=== PATIENT | female | born 1935 | race African-American/Black ===

== ENCOUNTER 2019-04-26 05:26 | Inpatient (IN) | payer BC, MEDICARE, OTHER ==
[~2019-04-26] VITALS: Ht 162.6 cm; Wt 59.9 kg
[2019-04-26] VITALS (7 sets, daily range): BP systolic 121–160; BP diastolic 62–80
[~2019-04-26 05:26] MED LIST: PREMARIN; [UNRECOGNIZED DRUG - OTHER]
[2019-04-26] MEDS ORDERED: METHYLPREDNISOLONE SOD SUCC 125 MG/2 ML VIAL IV STA (05:31)
[2019-04-26] MEDS ORDERED: IPRATROPIUM BROMIDE (0.02%) 0.5MG/2.5ML NEB HHN STA (05:31)
[2019-04-26] MEDS ORDERED: NITROGLYCERIN 0.4MG TABLET SL SL PRN (05:45)
[2019-04-26] MEDS ORDERED: ALBUTEROL (0.083%) 2.5MG/3ML NEB HHN SCH (06:00)
[2019-04-26 06:01] LABS: BASOPHILS % 1.1 % (0.0-2.0); EOSINOPHILS % 3.3 % (0.0-5.0); HEMATOCRIT. 33.6 % (36.0-48.0); HEMOGLOBIN. 10.7 g/dL (12.0-16.0); LYMPHOCYTES % 46.6 % (20.0-50.0); MEAN CORPUSCULAR HEMOGLOBIN 28.9 pg (28.0-32.0); MEAN CORPUSCULAR VOLUME 90.8 fL (81.0-99.0); MEAN PLATELET VOLUME 9.2 fl (7.4-10.4); MONOCYTES % 8.8 % (2.0-8.0); NEUTROPHILS % 40.2 % (40.0-76.0); PLATELET 288 x1000/uL (130-400); RED BLOOD CELL COUNT 3.71 mill/uL (4.2-5.4); RED CELL DISTRIBUTION WIDTH 17.3 % (11.6-14.6)
[2019-04-26 06:04] LABS: CHLORIDE 112 mEq/L (98-107)
[2019-04-26 06:25] LABS: PARTIAL THROMBOPLASTIN TIME 29.5 sec (23.4-31.0); PROTHROMBIN TIME 19.7 sec (9.6-11.0)
[2019-04-26] MEDS ORDERED: IPRATROPIUM BROMIDE (0.02%) 0.5MG/2.5ML NEB ONE (08:16)
[2019-04-26] MEDS ORDERED: ALBUTEROL (0.083%) 2.5MG/3ML NEB ONE (08:16)
[2019-04-26] MEDS ORDERED: ENOXAPARIN 40MG/0.4ML SYR SUBCUT SCH (09:45)
[2019-04-26] MEDS ORDERED: GUAIFENESIN 200MG/10ML SUGAR FREE UDC PO PRN (09:45)
[2019-04-26] MEDS ORDERED: IPRATROPIUM/ALBUTEROL 0.5-3(2.5)MG/3ML NEB NEB PRN (09:45)
[2019-04-26] MEDS ORDERED: CLONIDINE 0.1MG TABLET PO PRN (09:45)
[2019-04-26] MEDS ORDERED: MAGNESIUM/ALUMINUM HYDROXIDE/SIMETHICONE 30ML UDC PO PRN (09:45)
[2019-04-26] MEDS ORDERED: ONDANSETRON HCL 4MG/2ML INJ IV PRN (09:45)
[2019-04-26] MEDS ORDERED: ACETAMINOPHEN 325MG TABLET PO PRN (09:45)
[2019-04-26 10:14] LABS: BG BASE EXCESS 0.7 mmol/L (-2.0-2.0); BG BILEVEL POS AIRWAY PRESSURE 15/5; BG CARBOXYHEMOGLOBIN 0.3 % (0.5-1.5); BG DEOXYHEMOGLOBIN 1.5 % (0.0-5.0); BG FRACTION INSPIRED OXYGEN 50; BG HCO3 ACT 25.1 mmol/L (22.0-26.0); BG METHEMOGLOBIN 0.1 % (0.0-1.5); BG OXYGEN SATURATION 98.5 % (92.0-98.5); BG OXYHEMOGLOBIN 98.1 % (94.0-97.0); BG PCO2 39.3 mmHg (35.0-45.0); BG PH 7.423 (7.350-7.450); BG PO2 206.5 mmHg (75.0-100.0); BG SAMPLE SITE RIGHT RADIAL; BG TOTAL HEMOGLOBIN 11.5 g/dL (12.0-18.0); BG VENT MODE MASK - BIPAP
[2019-04-26] MEDS ORDERED: PANT20TA3 MT (11:35)
[2019-04-26] MEDS ORDERED: DORZ10DR9 RIGHTEYE (11:41)
[2019-04-26] MEDS ORDERED: LATA2.5D2 RIGHTEYE (11:41)
[2019-04-26] MEDS ORDERED: CLOP75TA33 MT (11:41)
[2019-04-26] MEDS ORDERED: LOSA25TA26 MT (11:41)
[2019-04-26] MEDS ORDERED: LOPHC2 MT (11:41)
[2019-04-26] MEDS ORDERED: ASPI-1393 MT (11:41)
[2019-04-26] MEDS ORDERED: FUROSEMIDE 40MG/4ML VIAL IVP NR (12:00)
[2019-04-26] MEDS ORDERED: ASPIRIN 81MG EC TABLET PO SCH (12:15)
[2019-04-26] MEDS ORDERED: LOSARTAN POTASSIUM 25 MG TABLET PO SCH (12:15)
[2019-04-26] MEDS ORDERED: CLOPIDOGREL 75MG TABLET PO SCH (12:15)
[2019-04-26] MEDS: DORZOLAM/TIMOLOL 2.23/0.68% OPHTH DROPS 10ML RIGHTEYE SCH ×2 (13:00→17:00)
[2019-04-26] MEDS ORDERED: LOSARTAN POTASSIUM 50 MG TABLET PO SCH (13:13)
[2019-04-26] MEDS ORDERED: POTASSIUM CHLORIDE 20MEQ TABLET SR PO SCH (13:13)
[2019-04-26] MEDS: IPRATROPIUM/ALBUTEROL 0.5-3(2.5)MG/3ML NEB HHN SCH ×2 (14:25→21:11)
[2019-04-26] MEDS ORDERED: FUROSEMIDE 40MG/4ML VIAL IVP SCH (17:15)
[2019-04-26] MEDS ORDERED: ATORVASTATIN CALCIUM 40MG TABLET PO SCH (21:00)
[2019-04-26] MEDS ORDERED: LATANOPROST 0.005% OPHTH DROPS 2.5ML RIGHTEYE SCH (21:00)
[2019-04-27] MEDS ORDERED: PANTOPRAZOLE 40MG DR TABLET PO SCH (06:50)
== END 2019-04-26 21:36 | disposition short-term general hospital (02) | DRG 189 ==
LOC: ER 05:26 → ENRESERV 08:18 → 3WST 08:47
PROVIDERS: ADMIT Internal Medicine; ATTEND Internal Medicine
PROC: 5A09357 Assistance with Respiratory Ventilation, Less than 24 Consecutive Hours, Continuous Positive Airway Pressure (ICD-10-PCS; principal; 2019-04-26)
DX: J96.20 Acute and chronic respiratory failure, unspecified whether with hypoxia or hypercapnia (principal); I50.43 Acute on chronic combined systolic (congestive) and diastolic (congestive) heart failure; E78.5 Hyperlipidemia, unspecified; I11.0 Hypertensive heart disease with heart failure; I25.10 Atherosclerotic heart disease of native coronary artery without angina pectoris; I25.2 Old myocardial infarction; Z95.5 Presence of coronary angioplasty implant and graft; Z88.8 Allergy status to other drugs, medicaments and biological substances; Z79.899 Other long term (current) drug therapy; Z79.82 Long term (current) use of aspirin
CPT/HCPCS: 36415; 36600; 71045; 82375; 82805; 83880; 84484; 93005; 93306; 96374; 99291; J1940; J2930; J7611; J7620